=== PATIENT | male | born 1950 | race Caucasian/White ===

== ENCOUNTER → 2016-04-12 | Outpatient (CLI) | payer BC ==
[~2016-04-12] MED LIST: ADVAIR IH; ADVIL200 MG PO; ALLERGY SHOTS; AMBIEN 10MG10 MG PO; ASPIRIN 81M81 MG/TA2 PO; B-121000 MCG PO; B-12500 MCG PO; CINNAMON500 MG PO; CO ENZYME Q-1050 MG PO; CO Q-1010 M1 PO; COMPAZINE 110 MG/TAB PO; CRESTOR 10MG10 MG PO; CYCLOSET0.8 MG PO; FIBER CHOICE1 CTB PO; FIBER0.52 GM PO; FLAGYL500 MG PO; FLOVENT DI50 MCG/Act IH; GAVISCON PO; JANUVIA 100MG100 MG PO; KLONOPIN 0.5MG0.5 MG PO; LANTUS100 U/ML SC; METHIMAZOLE5 MG PO; MOTRIN 800800 MG/TAB PO; MULTI VITAMINS1 TAB PO; MULTIPLE VITAMI1 CAP PO; NASONEX SPRAY NAS; NASONEX SPRAY17 GM NS; NERVE PILL PO; NORCO 325 MG-51 TAB PO; NOVOLOG 100U100 U/M1 SQ; ONGLYZA5 MG PO; PANTOPRAZOLE40 MG PO; PEPCID AC 10MG10 MG PO; PLAVIX 75MG TAB75 MG PO; PROAIR RES117 MCG/Ac IH; PROCHLORPERAZIN10 M1 PO; PROTONIX 40MG T40 MG PO; PROVENTIL0.09 MG/A1 IH; QVAR0.08 MG/AC IH; RT ADVAIR HFA 1112 G IH; TAPAZOLE5 MG PO; TOPROL XL 25MG25 MG PO; TRULICITY0.75 MG/0. SQ; ULTRAM 50MG TAB50 MG PO; VALIUM 5MG T5 MG/TAB PO; VALIUM5 MG PO; VASOTEC 2.2.5 MG/TAB PO; VITAMIN D1000 IU PO; VITAMIN D32000 IU PO; ZOCOR 10MG10 MG PO; ZOFRAN 4MG T4 MG/TAB PO; [UNRECOGNIZED DRUG - OTHER]; [UNRECOGNIZED DRUG - OTHER] PO
== END ==
LOC: COL.LAB 13:52
DX: Z53.9 Procedure and treatment not carried out, unspecified reason (principal)

== ENCOUNTER → 2016-04-27 | Outpatient (CLI) | payer BC | LOC: BHSO 15:33 | DX: F41.1 Generalized anxiety disorder (principal) ==

== ENCOUNTER → 2016-05-23 | Outpatient (CLI) | payer BC | LOC: COL.LAB 15:45 | DX: R05 Cough (principal); R06.02 Shortness of breath ==

== ENCOUNTER → 2016-07-14 | Outpatient (CLI) | payer BC | LOC: BHSO 15:09 | DX: F41.1 Generalized anxiety disorder (principal) ==

== ENCOUNTER → 2016-08-12 | Outpatient (CLI) | payer BC | LOC: COL.RAD 10:22 | DX: M47.812 Spondylosis without myelopathy or radiculopathy, cervical region (principal); M48.02 Spinal stenosis, cervical region; M50.223 Other cervical disc displacement at C6-C7 level; M25.78 Osteophyte, vertebrae ==

== ENCOUNTER 2016-09-19 05:29 | Day surgery (SDC) | payer BC ==
[~2016-09-19] VITALS: Ht 185.4 cm; Wt 103.3 kg
[2016-09-19] VITALS (9 sets, daily range): BP systolic 106–128; BP diastolic 68–89; PULSE 85–100; TEMP 97.5–98
[~2016-09-19 05:29] MED LIST changes: -ALLERGY SHOTS; -AMBIEN 10MG10 MG PO; -PEPCID AC 10MG10 MG PO; -PLAVIX 75MG TAB75 MG PO; -ULTRAM 50MG TAB50 MG PO
[2016-09-19] MEDS ORDERED: PLAVIX 75MG TAB75 MG PO (07:39)
[2016-09-19] MEDS ORDERED: PEPCID AC 10MG10 MG PO (07:40)
[2016-09-19] MEDS ORDERED: ULTRAM 50MG TAB50 MG PO (07:40)
[2016-09-19] MEDS ORDERED: AMBIEN 10MG10 MG PO (07:41)
[2016-09-19] MEDS ORDERED: ALLERGY SHOTS (07:43)
== END 2016-09-19 13:28 | disposition home or self-care (01) ==
LOC: SDCO 05:29
DX: M75.101 Unspecified rotator cuff tear or rupture of right shoulder, not specified as traumatic (principal); J45.909 Unspecified asthma, uncomplicated; J40 Bronchitis, not specified as acute or chronic; E11.9 Type 2 diabetes mellitus without complications; E78.5 Hyperlipidemia, unspecified; E05.90 Thyrotoxicosis, unspecified without thyrotoxic crisis or storm; K22.70 Barrett's esophagus without dysplasia; I51.9 Heart disease, unspecified; Z85.828 Personal history of other malignant neoplasm of skin
CPT/HCPCS: C1713; J0171; J0690; J1170; J2250; J2405; J2704; J2795; J3010; J7030

== ENCOUNTER → 2017-01-17 | Outpatient (CLI) | payer BC ==
[~2017-01-17] MED LIST changes: +ALLERGY SHOTS; +AMBIEN 10MG10 MG PO; +PEPCID AC 10MG10 MG PO; +PLAVIX 75MG TAB75 MG PO; +ULTRAM 50MG TAB50 MG PO
== END ==
LOC: BHSO 15:32
DX: F41.1 Generalized anxiety disorder (principal)

== ENCOUNTER → 2017-04-06 | Outpatient (CLI) | payer BC | LOC: BHSO 15:25 | DX: F41.1 Generalized anxiety disorder (principal) | CPT/HCPCS: G0463 ==

== ENCOUNTER → 2017-10-10 | Outpatient (CLI) | payer BC | LOC: BHSO 15:58 | DX: F41.0 Panic disorder [episodic paroxysmal anxiety] (principal) | CPT/HCPCS: G0463 ==

== ENCOUNTER → 2017-11-21 | Outpatient (CLI) | payer BC | LOC: BHSO 14:29 | DX: F41.1 Generalized anxiety disorder (principal) | CPT/HCPCS: G0463 ==

== ENCOUNTER 2018-04-20 15:36 | Emergency (ER) | payer MEDICARE, BC ==
[~2018-04-20] VITALS: Ht 182.9 cm; Wt 67.7 kg
[2018-04-20 16:26] VITALS: TEMP 98.8
[2018-04-20 18:46] LABS: BASO # 0.1 (0.0-0.2); BASO % 0.5 % (0.0-2.0); EOS # 0.4 (0.0-0.7); EOS % 3.5 % (0-4.0); GRAN # 6.7 (1.4-6.5); GRAN % 67.7 % (42.2-75.2); HEMATOCRIT 45.4 % (42.0-52.0); HEMOGLOBIN 15.6 g/dl (13.5-18.0); LYMPH # 1.8 (1.2-3.4); MEAN CELL VOLUME 94 fl (80.0-100.0); MEAN CORPUSCULAR HEMOGLOBIN 32 pg (27.0-31.0); MEAN CORPUSCULAR HGB CONC 34 g/dl (33.0-37.0); MEAN PLATELET VOLUME 8.9 fl (7.4-10.4); MONO # 0.9 (0.1-0.6); MONO % 9.4 % (1.7-9.3); PLATELET COUNT 223 K/mm3 (130-400); RED BLOOD COUNT 4.83 M/mm3 (4.20-5.60); REDCELL DISTRIBUTION WIDTH-CV 13.2 % (11.5-14.5)
[2018-04-20 19:00] LABS: ALBUMIN 4.4 gm/dL (3.5-5.0); BILIRUBIN,TOTAL 0.6 mg/dL (0.0-1.0); CALCIUM 10.7 mg/dL (8.4-10.2); CREATININE, serum 0.88 mg/dL (0.66-1.25); TOTAL PROTEIN 7.5 gm/dL (6.4-8.2)
[2018-04-20] MEDS ORDERED: RT ADVAIR HFA 1112 G IH (19:07)
[2018-04-20] MEDS ORDERED: KLONOPIN 1MG1 MG PO (19:16)
[2018-04-20] MEDS ORDERED: CITRUCEL WITH500 MG PO (19:16)
[2018-04-20] MEDS ORDERED: FLEXERIL5 MG PO (19:17)
[2018-04-20] MEDS ORDERED: THE MEDICINE S200 M2 PO (19:18)
[2018-04-20] MEDS ORDERED: VALIUM 10MG10 MG/TAB PO (19:18)
[2018-04-20] MEDS ORDERED: VASOTEC 5MG5 MG/TAB PO (19:20)
[2018-04-20] MEDS ORDERED: MELATONIN5 M1 PO (19:21)
[2018-04-20] MEDS ORDERED: MOBIC15 MG PO (19:21)
[2018-04-20] MEDS ORDERED: NORCO 325 MG-51 TAB PO (19:23)
[2018-04-20] MEDS ORDERED: PROTONIX 40MG T40 MG PO (19:23)
[2018-04-20] MEDS ORDERED: NOVOLOG 100U100 U/M1 SQ (19:23)
[2018-04-20] MEDS ORDERED: PEPCID 20MG TAB20 MG (19:24)
[2018-04-20] MEDS ORDERED: MIRAPEX ER4.5 MG PO (19:25)
[2018-04-20] MEDS ORDERED: TRULICITY1.5 MG/0.5 SQ (19:26)
[2018-04-20] MEDS ORDERED: LASIX 20MG TABL20 MG PO (19:35)
[2018-04-20 20:29] VITALS: BP 144/96; PULSE 90
== END 2018-04-20 20:29 | disposition home or self-care (01) ==
LOC: COL.ER 15:36
PROVIDERS: Emergency Medicine
DX: R60.9 Edema, unspecified (principal); I10 Essential (primary) hypertension; E11.9 Type 2 diabetes mellitus without complications; I25.10 Atherosclerotic heart disease of native coronary artery without angina pectoris; E78.5 Hyperlipidemia, unspecified; Z95.9 Presence of cardiac and vascular implant and graft, unspecified; Z79.4 Long term (current) use of insulin; Z79.82 Long term (current) use of aspirin

== ENCOUNTER → 2018-07-02 | Outpatient (CLI) | payer MEDICARE, BC ==
[~2018-07-02] MED LIST changes: +CITRUCEL WITH500 MG PO; +FLEXERIL5 MG PO; +KLONOPIN 1MG1 MG PO; +LASIX 20MG TABL20 MG PO; +MELATONIN5 M1 PO; +MIRAPEX ER4.5 MG PO; +MOBIC15 MG PO; +PEPCID 20MG TAB20 MG; +THE MEDICINE S200 M2 PO; +TRULICITY1.5 MG/0.5 SQ; +VALIUM 10MG10 MG/TAB PO; +VASOTEC 5MG5 MG/TAB PO
== END ==
LOC: COL.RAD 08:45
DX: M25.511 Pain in right shoulder (principal)
CPT/HCPCS: J3301; Q9967

== ENCOUNTER → 2019-02-01 | Outpatient (CLI) | payer MEDICARE, BC | LOC: COL.RAD 01-30 12:45 | DX: K76.0 Fatty (change of) liver, not elsewhere classified (principal) ==

== ENCOUNTER 2020-05-25 22:47 | Emergency (ER) | payer MEDICARE, BC ==
[~2020-05-25] VITALS: Ht 182.9 cm; Wt 99.1 kg
[2020-05-25 22:52] VITALS: TEMP 97.9
[2020-05-25] MEDS ORDERED: PRALUENT P75 MG/1 ML SQ (23:08)
[2020-05-25 23:28] LABS: COLLECTION METHOD CLEAN CATCH
[2020-05-25 23:31] LABS: BASO % 0.5 % (0.0-2.0); EOS # 0.4 (0.0-0.7); EOS % 5.6 % (0-4.0); GRAN # 4.7 (1.4-6.5); GRAN % 60.6 % (42.2-75.2); HEMATOCRIT 42.6 % (42.0-52.0); HEMOGLOBIN 14.3 g/dl (13.5-18.0); LYMPH # 1.7 (1.2-3.4); LYMPH % 22.1 % (20.0-51.0); MEAN CELL VOLUME 96 fl (80.0-100.0); MEAN CORPUSCULAR HEMOGLOBIN 32 pg (27.0-31.0); MEAN CORPUSCULAR HGB CONC 34 g/dl (33.0-37.0); MONO # 0.8 (0.1-0.6); MONO % 10.6 % (1.7-9.3); PLATELET COUNT 216 K/mm3 (130-400); RED BLOOD COUNT 4.42 M/mm3 (4.20-5.60); REDCELL DISTRIBUTION WIDTH-CV 13.5 % (11.5-14.5)
[2020-05-25 23:45] LABS: ALANINE AMINOTRANSFERASE 43 U/L (4-49); ALKALINE PHOSPHATASE 63 U/L (50-136); ANION GAP 9 mmol/L (7-16); AST,SGOT 40 U/L (15-37); BILIRUBIN,TOTAL 0.6 mg/dL (0.0-1.0); BLOOD UREA NITROGEN 11 mg/dL (9-20); C-REACTIVE PROTEIN < 0.5 mg/dL (0.0-0.9); CARBON DIOXIDE 23 mmol/L (22-30); CHLORIDE 106 mmol/L (98-107); CREATININE, serum 1.06 (0.66-1.25); GLUCOSE 160 mg/dL (74-106); LIPASE 137 U/L (23-300); POTASSIUM 3.6 mmol/L (3.4-5.0); SODIUM 138 mmol/L (137-145)
[2020-05-25 23:51] LABS: BUDDING YEAST Present /hpf; PH 6 (5-8); SQUAMOUS EPITHELIAL None Seen /hpf; URINE APPEARANCE Hazy; URINE BACTERIA None Seen /hpf; URINE BILIRUBIN Negative (NEGATIVE); URINE BLOOD 3+ (NEGATIVE); URINE COLOR Yellow; URINE GLUCOSE 3+ (NEGATIVE); URINE KETONE Negative (NEGATIVE); URINE LEUKOCYTE ESTERASE Negative (NEGATIVE); URINE NITRATE Negative (NEGATIVE); URINE PROTEIN(semi-quant) Negative (NEGATIVE); URINE RBC >50 /hpf; URINE UROBILINOGEN Negative (NEGATIVE)
[2020-05-26] MEDS ORDERED: CIPRO 500MG TA500 MG PO (01:43)
[2020-05-26] MEDS ORDERED: ZOFRAN ODT4 MG PO (01:43)
[2020-05-26] MEDS ORDERED: PERCOCET 325 MG1 TA2 PO (01:43)
[2020-05-26 02:07] VITALS: BP 136/78; PULSE 87
== END 2020-05-26 02:07 | disposition home or self-care (01) ==
LOC: COL.ER 22:47
PROVIDERS: Nurse Practitioner
DX: N28.89 Other specified disorders of kidney and ureter (principal); N39.0 Urinary tract infection, site not specified; J45.909 Unspecified asthma, uncomplicated; Z88.1 Allergy status to other antibiotic agents; Z88.8 Allergy status to other drugs, medicaments and biological substances; Z79.4 Long term (current) use of insulin; Z79.82 Long term (current) use of aspirin
CPT/HCPCS: J1170; J2405; J7030; Q9967

== ENCOUNTER → 2020-05-29 | Outpatient (CLI) | payer MEDICARE, BC ==
[~2020-05-29] MED LIST changes: +ALBUTEROL SULFAT3 M3 IH; +B-12 500 MCG PO; +BASAGLAR K100 UNIT/1 SQ; +CIPRO 500MG TA500 MG PO; +COLACE 100100 MG/CAP PO; +CRESTOR5 MG PO; +FLONASEALLERGY NS; +JARDIANCE25 PO; +MAGNESIUM200 MG PO; +MASON NATURAL2000 IU PO; +MELATONIN1 MG PO; +MEN'S ONE DAIL1 EACH PO; +MIRAPEX0.5 MG PO; +OZEMPIC1 MG/0.75 SQ; +PEPCID 20MG TAB20 MG PO; +PERCOCET 325 MG1 TA2 PO; +PRALUENT P75 MG/1 ML SQ; +TOPROL XL 50MG50 MG PO; +TRYPTOPHAN PO; +VENTOLIN0.09 MG IH; +XANAX 0.5MG0.5 MG PO; +ZOFRAN ODT4 MG PO; +[UNRECOGNIZED DRUG - MIXTURE]
== END ==
LOC: COL.RAD 09:52
DX: N28.89 Other specified disorders of kidney and ureter (principal)

== ENCOUNTER 2020-06-02 09:41 | Inpatient (IN) | payer MEDICARE, BC ==
[~2020-06-02] VITALS: Ht 183 cm; Wt 98.2 kg
[~2020-06-02 09:41] MED LIST changes: -ALBUTEROL SULFAT3 M3 IH; -B-12 500 MCG PO; -BASAGLAR K100 UNIT/1 SQ; -COLACE 100100 MG/CAP PO; -CRESTOR5 MG PO; -FLONASEALLERGY NS; -JARDIANCE25 PO; -MAGNESIUM200 MG PO; -MASON NATURAL2000 IU PO; -MELATONIN1 MG PO; -MEN'S ONE DAIL1 EACH PO; -MIRAPEX0.5 MG PO; -OZEMPIC1 MG/0.75 SQ; -PEPCID 20MG TAB20 MG PO; -TOPROL XL 50MG50 MG PO; -TRYPTOPHAN PO; -VENTOLIN0.09 MG IH; -XANAX 0.5MG0.5 MG PO; -[UNRECOGNIZED DRUG - MIXTURE]
[2020-06-04] VITALS (10 sets, daily range): BP systolic 114–145; BP diastolic 63–84; PULSE 57–97; TEMP 97–98.5
[2020-06-04 11:47] LABS: BASO # 0.1 (0.0-0.2); BASO % 0.7 % (0.0-2.0); EOS # 0.3 (0.0-0.7); EOS % 3.9 % (0-4.0); GRAN # 5.1 (1.4-6.5); HEMATOCRIT 46.9 % (42.0-52.0); HEMOGLOBIN 15.8 g/dl (13.5-18.0); LYMPH # 1.4 (1.2-3.4); LYMPH % 18.2 % (20.0-51.0); MEAN CELL VOLUME 98 fl (80.0-100.0); MEAN CORPUSCULAR HEMOGLOBIN 33 pg (27.0-31.0); MEAN CORPUSCULAR HGB CONC 34 g/dl (33.0-37.0); MEAN PLATELET VOLUME 8.8 fl (7.4-10.4); MONO # 0.7 (0.1-0.6); MONO % 9.3 % (1.7-9.3); PLATELET COUNT 207 K/mm3 (130-400); REDCELL DISTRIBUTION WIDTH-CV 13.3 % (11.5-14.5)
[2020-06-04 11:56] LABS: CALCIUM 10.4 mg/dL (8.4-10.2); CREATININE, serum 0.97 (0.66-1.25); POTASSIUM 4.2 mmol/L (3.4-5.0)
[2020-06-04] MEDS ORDERED: RT ADVAIR HFA 1112 G IH (12:45)
[2020-06-04] MEDS ORDERED: VENTOLIN0.09 MG IH (12:46)
[2020-06-04] MEDS ORDERED: ALBUTEROL SULFAT3 M3 IH (12:47)
[2020-06-04] MEDS ORDERED: XANAX 0.5MG0.5 MG PO (12:49)
[2020-06-04] MEDS ORDERED: [UNRECOGNIZED DRUG - MIXTURE] (12:51)
[2020-06-04] MEDS ORDERED: ASPIRIN 81M81 MG/TA2 PO (12:52)
[2020-06-04] MEDS ORDERED: B-12 500 MCG PO (12:52)
[2020-06-04] MEDS ORDERED: BASAGLAR K100 UNIT/1 SQ (12:53)
[2020-06-04] MEDS ORDERED: CITRUCEL WITH500 MG PO (12:54)
[2020-06-04] MEDS ORDERED: CRESTOR5 MG PO (12:56)
[2020-06-04] MEDS ORDERED: THE MEDICINE S200 M2 PO (12:56)
[2020-06-04] MEDS ORDERED: FLONASEALLERGY NS (12:57)
[2020-06-04] MEDS ORDERED: VALIUM 10MG10 MG/TAB PO (12:57)
[2020-06-04] MEDS ORDERED: VASOTEC 5MG5 MG/TAB PO (12:57)
[2020-06-04] MEDS ORDERED: JARDIANCE25 PO (12:59)
[2020-06-04] MEDS ORDERED: TRYPTOPHAN PO (13:00)
[2020-06-04] MEDS ORDERED: MELATONIN1 MG PO (13:01)
[2020-06-04] MEDS ORDERED: MAGNESIUM200 MG PO (13:01)
[2020-06-04] MEDS ORDERED: TAPAZOLE5 MG PO (13:02)
[2020-06-04] MEDS ORDERED: TOPROL XL 50MG50 MG PO (13:03)
[2020-06-04] MEDS ORDERED: MEN'S ONE DAIL1 EACH PO (13:04)
[2020-06-04] MEDS ORDERED: OZEMPIC1 MG/0.75 SQ (13:06)
[2020-06-04] MEDS ORDERED: PROTONIX 40MG T40 MG PO (13:07)
[2020-06-04] MEDS ORDERED: PEPCID 20MG TAB20 MG PO (13:07)
[2020-06-04] MEDS ORDERED: MIRAPEX0.5 MG PO (13:09)
[2020-06-04] MEDS ORDERED: PRALUENT P75 MG/1 ML SQ (13:09)
[2020-06-04] MEDS ORDERED: COMPAZINE 110 MG/TAB PO (13:11)
[2020-06-04] MEDS ORDERED: ULTRAM 50MG TAB50 MG PO (13:12)
[2020-06-04] MEDS ORDERED: MASON NATURAL2000 IU PO (13:13)
[2020-06-04] MEDS ORDERED: NOVOLOG 100U100 U/M1 SQ (13:16)
--- NOTE | 2020-06-04 16:45 | NUR ---
PATIENT ADMITED INTO ROOM 348. A&O. VSS. MILD ABD DISCOMFORT. ABD IS DISTENDED AND WITH POSITIVE BOWL SOUNDS. NOTED 3 ABD LAP SITES AND 1 LOWER ABD INCISION ARE CD&I WITH GLUED CLOSURE. PATIENT C/O FEELING A LITTLE NAUSEA, NO EMESIS. GAVE PRN ZOFRAN. IV FLUIDS INFUSING INTO LEFT FORARM. PACU BS WAS 144. HEAD TO TOE ASSESSMENT COMPLETE. AT BEDSIDE. HOSPITALIST CONSULT CALLED. NO OTHER NEEDS. CALL LIGHT IN REACH.
[2020-06-04 17:21] LABS: HEMATOCRIT 46.9 % (42.0-52.0); HEMOGLOBIN 15.2 g/dl (13.5-18.0); MEAN CELL VOLUME 102 fl (80.0-100.0); MEAN CORPUSCULAR HEMOGLOBIN 33 pg (27.0-31.0); MEAN CORPUSCULAR HGB CONC 32 g/dl (33.0-37.0); MEAN PLATELET VOLUME 8.8 fl (7.4-10.4); PLATELET COUNT 181 K/mm3 (130-400); RED BLOOD COUNT 4.61 M/mm3 (4.20-5.60); REDCELL DISTRIBUTION WIDTH-CV 13.5 % (11.5-14.5)
[2020-06-04 17:30] LABS: CALCIUM 9.5 mg/dL (8.4-10.2); CREATININE, serum 1.3 (0.66-1.25); POTASSIUM 4.8 mmol/L (3.4-5.0)
[2020-06-04 17:59] LABS: EOSINOPHIL 1 % (0-4); HYPOCHROMIA 2+; LYMPHOCYTE 2 % (20.0-51.0); NEUTROPHILS 95 % (42.0-75.2); PLATELET ESTIMATE NORMAL (NORMAL)
--- NOTE | 2020-06-04 20:40 | NUR ---
Pt. sitting up in bed. Pt. is A&OX3, assessment complete. INT to lt. hand patent. Shea catheter to DD, clear yellow urine noted. Abd. midline and 3 lap sites well approximated, RECORD LABEL INTERN. Pt. reports pain at a 5 on pain scale, gave pain meds per orders. Pt. stood at bedside for 5 minutes then ambulated in the nieves. Pt. tolerated well. Pt. denies further needs, call light within reach.
[2020-06-05 03:36] VITALS: BP 128/76; PULSE 74; TEMP 97.2
[2020-06-05 06:11] LABS: BASO % 0.1 % (0.0-2.0); GRAN # 9.6 (1.4-6.5); GRAN % 83.8 % (42.2-75.2); HEMATOCRIT 39.8 % (42.0-52.0); LYMPH # 0.9 (1.2-3.4); LYMPH % 7.5 % (20.0-51.0); MEAN CELL VOLUME 100 fl (80.0-100.0); MEAN CORPUSCULAR HEMOGLOBIN 33 pg (27.0-31.0); MEAN CORPUSCULAR HGB CONC 33 g/dl (33.0-37.0); MEAN PLATELET VOLUME 8.9 fl (7.4-10.4); MONO # 0.9 (0.1-0.6); PLATELET COUNT 213 K/mm3 (130-400); REDCELL DISTRIBUTION WIDTH-CV 13.2 % (11.5-14.5)
[2020-06-05 06:19] LABS: CALCIUM 8.5 mg/dL (8.4-10.2); CREATININE, serum 1.55 (0.66-1.25); POTASSIUM 4.9 mmol/L (3.4-5.0)
--- NOTE | 2020-06-05 07:12 | NUR ---
Pt resting in bed at this time. Minimal pain complaints. States that the silva catheter is really bothering him. There is output, but pt states that he feels as if he needs to void. Tolerating CL
[2020-06-05 07:15] LABS: HEMOGLOBIN 13.2 g/dl (13.5-18.0)
[2020-06-05 07:43] VITALS: BP 99/66; PULSE 81; TEMP 97.3
--- NOTE | 2020-06-05 08:25 | NUR ---
Surgeon arrived to see patient. Patient stated he was wanting to go home and have silva d/c'd. Surgeon put orders in allowing silva removal and plans to discharge today. Patient voided after removal and walked around the unit to expel gas. The surgeon also advanced diet to ADA and patient ordered breakfast. No other requests at this time.
--- NOTE | 2020-06-05 08:30 | NUR ---
PATIENT IS SITTING IN BED, ALERT AND ORIENTED, VSS, REPORT ABDOMINAL DISCONFORT, CHECKING ON SOME MEDS FOR GAS, ORDERED MORE FOR BREAKFAST SINCE DIET CHANGED. NO FURTHER NEEDS AT THE MOMENT.
--- NOTE | 2020-06-05 10:09 | NUR ---
Flotation Tender Helper met with patient and patient's , Alicia (ph#[phone]) to discuss discharge planning. Patient lives in [place] with his Alicia and sees Dr. Reina for primary care. Patient obtains medications from [facility] with no difficulties and advised he rarely uses a nebulizer. Patient does not use any other DME. Patient advised he is independent with [facility]. Patient has DPO[facility] in EMR which designates Alicia Palacios and Marcus Palacios. Discharge Plan: Home with .
--- NOTE | 2020-06-05 12:00 | NUR ---
Pt doing well. Ambulating often, minimal pain complaints. Right shoulder bothering him, states this is chronic. Informed him that he needs to use the urinal any time that he needs to urinate so that we can measure it. Pt does have a urinal in the room. No needs, will continue to monitor
[2020-06-05 12:46] VITALS: BP 102/60; PULSE 81; TEMP 97.7
--- NOTE | 2020-06-05 14:40 | NUR ---
Patient is lying in bed, reports soring pain in his shoulders 3 in a numerical rate. States he will take a nap to rest a little. No furher needs right now.
--- NOTE | 2020-06-05 15:00 | NUR ---
Pt continues to not use urinal to void. He has voided x3 since silva removed. Reminded him that he needs to use the urinal when he voids. Pt also reports that he had a bowel movement which he reports felt better afterwards. Pt is hopeful that he gets to go home today, minimal needs or complaints. Will continue to monitor
[2020-06-05 15:21] VITALS: BP 106/73; PULSE 78; TEMP 98.1
[2020-06-05] MEDS ORDERED: NORCO 325 MG-51 TAB PO (17:34)
[2020-06-05] MEDS ORDERED: COLACE 100100 MG/CAP PO (17:34)
--- NOTE | 2020-06-05 17:48 | NUR ---
Dr Cantrell rounded on patient. New orders for discharge. Reviewed discharge instructions with patient to include follow up appointment, activity and prescriptions. Pt getting dressed
--- NOTE | 2020-06-05 18:10 | NUR ---
Pt escorted out at this time
== END 2020-06-05 18:10 | disposition home or self-care (01) | DRG 657 ==
LOC: INPTSU 06-04 10:37 → SURG 06-04 12:30
PROVIDERS: ADMIT Urology
PROC: 07TD0ZZ Resection of Aortic Lymphatic, Open Approach (ICD-10-PCS; 2020-06-04)
PROC: 0TT10ZZ Resection of Left Kidney, Open Approach (ICD-10-PCS; principal; 2020-06-04 12:30)
DX: C64.2 Malignant neoplasm of left kidney, except renal pelvis (principal); I82.3 Embolism and thrombosis of renal vein; D62 Acute posthemorrhagic anemia; N17.9 Acute kidney failure, unspecified; E11.9 Type 2 diabetes mellitus without complications; J45.909 Unspecified asthma, uncomplicated; K21.9 Gastro-esophageal reflux disease without esophagitis; F41.9 Anxiety disorder, unspecified; E78.5 Hyperlipidemia, unspecified; I10 Essential (primary) hypertension; E05.90 Thyrotoxicosis, unspecified without thyrotoxic crisis or storm; G25.81 Restless legs syndrome; K76.0 Fatty (change of) liver, not elsewhere classified; R09.02 Hypoxemia; E83.52 Hypercalcemia; E53.8 Deficiency of other specified B group vitamins; G47.00 Insomnia, unspecified; E03.9 Hypothyroidism, unspecified; Z79.4 Long term (current) use of insulin; Z79.82 Long term (current) use of aspirin; Z88.1 Allergy status to other antibiotic agents; Z88.8 Allergy status to other drugs, medicaments and biological substances; Z85.828 Personal history of other malignant neoplasm of skin
CPT/HCPCS: 99222; 99232-AI; A4314; J0690; J1100; J1170; J1650; J1815; J2250; J2370; J2405; J2704; J3010; J7030

== ENCOUNTER → 2020-09-14 | Outpatient (CLI) | payer MEDICARE, BC ==
[~2020-09-14] MED LIST changes: +ALBUTEROL SULFAT3 M3 IH; +B-12 500 MCG PO; +BASAGLAR K100 UNIT/1 SQ; +COLACE 100100 MG/CAP PO; +CRESTOR5 MG PO; +FLONASEALLERGY NS; +JARDIANCE25 PO; +MAGNESIUM200 MG PO; +MASON NATURAL2000 IU PO; +MELATONIN1 MG PO; +MEN'S ONE DAIL1 EACH PO; +MIRAPEX0.5 MG PO; +OZEMPIC1 MG/0.75 SQ; +PEPCID 20MG TAB20 MG PO; +TOPROL XL 50MG50 MG PO; +TRYPTOPHAN PO; +VENTOLIN0.09 MG IH; +XANAX 0.5MG0.5 MG PO; +[UNRECOGNIZED DRUG - MIXTURE]
== END ==
LOC: COL.RAD 07:40
DX: Z01.812 Encounter for preprocedural laboratory examination (principal); N28.1 Cyst of kidney, acquired; R59.0 Localized enlarged lymph nodes; Z90.5 Acquired absence of kidney
CPT/HCPCS: Q9967

== ENCOUNTER → 2020-12-21 | Outpatient (CLI) | payer MEDICARE, BC | LOC: COL.RAD 06:53 | DX: Z01.812 Encounter for preprocedural laboratory examination (principal); R59.0 Localized enlarged lymph nodes; Z90.5 Acquired absence of kidney; Z98.890 Other specified postprocedural states | CPT/HCPCS: Q9967 ==

== ENCOUNTER → 2021-07-05 | Outpatient (CLI) | payer MEDICARE, BC | LOC: COL.RAD 08:10 | DX: C64.2 Malignant neoplasm of left kidney, except renal pelvis (principal); Z90.5 Acquired absence of kidney | CPT/HCPCS: Q9967 ==

== ENCOUNTER → 2022-06-13 | Outpatient (CLI) | payer MEDICARE, BC | LOC: COL.RAD 07:13 | DX: N40.0 Benign prostatic hyperplasia without lower urinary tract symptoms (principal); N28.1 Cyst of kidney, acquired; K46.9 Unspecified abdominal hernia without obstruction or gangrene; K76.0 Fatty (change of) liver, not elsewhere classified; C64.2 Malignant neoplasm of left kidney, except renal pelvis; Z98.890 Other specified postprocedural states; Z90.5 Acquired absence of kidney | CPT/HCPCS: Q9967 ==